=== PATIENT | female | born 1950 | race Caucasian/White ===

== ENCOUNTER 2023-02-19 17:43 | Outpatient (REF) | payer MEDICARE, SELFPAY ==
[2023-02-19 20:50] LABS: HCT 37.7 % (36.0-46.0); HGB 12.4 g/dL (11.2-15.7); MCH 30.3 pg (27.0-33.0); MCHC 32.9 % (32.0-36.0); MCV 92 fL (80-95); Platelet Count 211 10^3/uL (130-400); RBC 4.09 10^6/uL (3.93-5.22); RDW 13.3 % (11.7-14.6); RDW-SD 45.5 fL; WBC 4.16 10^3/uL (4.4-10.8)
[2023-02-19 21:17] LABS: TSH (W/Ref FT4) 0.97 uIU/mL (0.36-3.74)
[2023-02-21 09:50] LABS: Hepatitis C Ab w Rflx HCV PCR Negative (Negative)
== END 2023-02-19 17:44 | disposition home or self-care (01) ==
LOC: NCHCN 17:43
PROVIDERS: PCP Family Medicine; Visit Provider Family Medicine
DX: D64.9 Anemia, unspecified (principal); E03.9 Hypothyroidism, unspecified; Z11.59 Encounter for screening for other viral diseases
CPT/HCPCS: 85027; 86803; 84443

== ENCOUNTER 2024-03-23 15:17 | Outpatient (REF) | payer MEDICARE, SELFPAY ==
[2024-03-23 21:10] LABS: Abs Immature Grans 0.01 10^3/uL (0.0-0.06); Absolute Basophil Count 0.07 10^3/uL (0.0-0.2); Absolute Eosinophil Count 0.11 10^3/uL (0.0-0.7); Absolute Lymphocyte Count 1.72 10^3/uL (1.2-3.4); Absolute Monocyte Count 0.49 10^3/uL (0.1-0.8); Basophils % 1.3; HCT 39.9 % (36.0-46.0); Immature Grans % 0.2; Lymphocytes % 31.9; MCH 31.4 pg (27.0-33.0); MCHC 32.6 % (32.0-36.0); MCV 96 fL (80-95); MPV 10.8 fL (8.0-11.0); Monocytes % 9.1; Neutrophils % 55.5; Platelet Count 198 10^3/uL (130-400); RBC 4.14 10^6/uL (3.93-5.22); RDW 12.8 % (11.7-14.6); RDW-SD 45.6 fL
[2024-03-23 21:24] LABS: Calculated LDL 114 mg/dL (<100); Cholesterol 199 mg/dL (<200); HDL Cholesterol 75 mg/dL (40-60); Triglyceride 50 mg/dL (<150)
== END 2024-03-23 15:18 | disposition home or self-care (01) ==
LOC: NCHCN 15:17
PROVIDERS: PCP Family Medicine; Visit Provider Family Medicine
DX: Z13.220 Encounter for screening for lipoid disorders (principal); D72.819 Decreased white blood cell count, unspecified
CPT/HCPCS: 80061; 85025